=== PATIENT | female | born 1975 | race Caucasian/White ===

== ENCOUNTER 2019-01-07 06:34 | Day surgery (SDC) | payer MEDICAID, OTHER ==
[2019-01-07] MEDS ORDERED: DEXAMETHASONE SODIUM PHOSPHATE 10 MG/ML VIAL ONE (08:48)
[2019-01-07] MEDS ORDERED: fentaNYL CITRATE/PF 100 MCG/2 ML INJ. ONE ×2 (08:48→09:25)
[2019-01-07] MEDS ORDERED: GLYCOPYRROLATE 0.2 MG/1 ML 1 ML ONE (08:48)
[2019-01-07] MEDS ORDERED: LIDOCAINE HCL 1% PF 300MG/30ML VIAL ONE (08:48)
[2019-01-07] MEDS ORDERED: ePHEDrine SULFATE 50 MG/1 ML IVP ONE (08:48)
[2019-01-07] MEDS ORDERED: LIDOCAINE HCL 2% PF 100MG/5ML VIAL IJ ONE (08:48)
[2019-01-07] MEDS ORDERED: SODIUM CHLORIDE IRRIG SOLUTION 3,000 ML IRRIG.SOLN IR ONE (08:48)
[2019-01-07] MEDS ORDERED: FENTANYL CITRATE/PF 250 MCG/5 ML INJ. ONE (08:48)
[2019-01-07] MEDS ORDERED: LACTATED RINGERS 1,000 ML IV.SOLN IV ONE (08:48)
[2019-01-07] MEDS ORDERED: PROPOFOL 200 MG/20 ML VIAL IV ONE (08:48)
[2019-01-07] MEDS ORDERED: MIDAZOLAM HCL 2 MG/2 ML VIAL ONE (08:48)
[2019-01-07] MEDS ORDERED: SUGAMMADEX SODIUM 200 MG/2 ML VIAL IV ONE (08:48)
[2019-01-07] MEDS ORDERED: BUPIV. HCL 0.25% (2.5MG/ML)/EPI. (1:200,000) PF 30 ML VIAL IJ ONE (08:48)
[2019-01-07] MEDS ORDERED: ONDANSETRON HCL/PF 4 MG/ 2ML VIAL ONE (08:48)
[2019-01-07] MEDS ORDERED: ROCURONIUM BROMIDE 10 MG/ML 5ML VIAL ONE (08:48)
[2019-01-07] MEDS ORDERED: SEVOFLURANE 250 ML LIQUID IH ONE (08:48)
[2019-01-07] MEDS ORDERED: CLINDAMYCIN PHOSPHATE 900 MG/6 ML VIAL ONE (08:48)
[2019-01-07] MEDS ORDERED: ACETAMINOPHEN 1,000 MG/100 ML INJ IV ONE (08:48)
[2019-01-07] MEDS ORDERED: ENOXAPARIN SODIUM 40 MG/0.4 ML DISP.SYRIN SQ ONE (08:48)
--- NOTE | 2019-01-08 12:03 | Operative Note ---
PREOPERATIVE DIAGNOSIS: 1. Morbid obesity. 2. Gastroesophageal reflux disease. 3. Obstructive sleep apnea. POSTOPERATIVE DIAGNOSIS: 1. Morbid obesity. 2. Gastroesophageal reflux disease. 3. Obstructive sleep apnea. PROCEDURES PERFORMED: 1. Laparoscopic vertical sleeve gastrectomy. 2. Upper gastrointestinal endoscopy. SURGEON: Silas Aronld M.D. INDICATIONS FOR PROCEDURE: Ms. Coello is a 43-year-old female who presented with features of morbid obesity and the above-listed comorbidities. She was noted to have a weight of 276 pounds with a BMI of 46.6. The patient was advised laparoscopic vertical sleeve gastrectomy and possible hiatal hernia repair. The patient showed understanding and agreed to proceed. DESCRIPTION OF PROCEDURE: After explaining to the patient in detail and informed consent was obtained, the patient was identified in the preoperative holding area. The patient was transferred to the operating room and was placed in supine position. Sequential compressive devices were placed for DVT prophylaxis. Preoperative antibiotics were given. After induction of anesthesia, the abdomen was prepped and draped in a sterile fashion. Through a left upper quadrant 1-cm incision, and using Optiview technique, the peritoneal cavity was entered and pneumoperitoneum was created. Thereafter, under direct vision, another 5-mm trocar was placed in the left midabdomen and another 15-mm trocar was placed in the right midabdomen. Through a 1-cm incision in the right subcostal region, another 5-mm trocar was placed. Through a 1-cm incision in the epigastrium, a Nessa retractor was introduced and the left lobe of the liver was retracted. On initial inspection, the patient was noted to have no evidence of hiatal hernia. I took down the gastroepiploic vessels using a LigaSure. This was continued superiorly. The short gastric vessels were taken down. The gastrophrenic ligament was divided and the Angle of His was mobilized. The posterior attachments of the stomach on the pancreas were released. Distally, the gastroepiploic vessels were taken down up to about 4 cm proximal to the pylorus. At this point, a #38 [place] Bougie was introduced into the stomach and was placed along the lesser curve. The stomach was then divided in a vertical fashion with multiple Endo MOLINA Covidien Black Load Staplers. The first firing was directed outwards towards the greater curvature. Subsequent firings were directed towards the Angle of His to create a loose sleeve around the #38 [place] bougie. The bougie was then removed and an upper GI endoscopy was performed at this point. The scope was introduced into the esophagus and was gradually advanced into the stomach. The GE junction appeared normal. The sleeve size appeared normal. No evidence of any active bleeding was noted. The stomach was insufflated with air and irrigation of fluid along the staple line revealed no evidence of air leak. The stomach was then suctioned out and the scope was removed. Absolute hemostasis was ensured. Thorough saline irrigation was given. The Nessa retractor was removed. Approximately 10 mL of a lidocaine- Marcaine mix was instilled under the left hemidiaphragm. The sleeve gastrectomy specimen was removed. The abdomen was then deflated. The incisions were closed with 4-0 Monocryl. Dermabond was applied. Approximately 10 mL of a lidocaine- Marcaine mix was injected into all the incisions. The patient was awakened from anesthesia and was transferred to the recovery room in stable condition. ESTIMATED BLOOD LOSS: Approximately 10 mL. CONDITION OF THE PATIENT: Stable. FLUIDS GIVEN: Per Anesthesia note. SPECIMEN(S) SENT: Sleeve gastrectomy specimen. COMPLICATIONS: None. ANESTHESIA: General. Silas Arnold M.D. RANGEL/ramona Job #[id number] @ 0857 @1104 MTDD
== END 2019-01-07 10:59 | disposition other institution (70) ==
LOC: OPSURG 06:34
PROVIDERS: ATTEND Surgery
DX: E66.01 Morbid (severe) obesity due to excess calories (principal); Z68.42 Body mass index [BMI] 45.0-49.9, adult; K21.9 Gastro-esophageal reflux disease without esophagitis; G47.33 Obstructive sleep apnea (adult) (pediatric)
CPT/HCPCS: 43235; 43775; 88305; J1650; J2001; J2250; J2405; J2704; J3010; J3490; J7120

== ENCOUNTER 2019-01-07 11:01 | Inpatient (IN) | payer MEDICAID ==
[2019-01-07] MEDS: 0.9 % SODIUM CHLORIDE 1,000 ML IV SCH ×2 (11:05→17:30)
[2019-01-07] MEDS ORDERED: ONDANSETRON HCL/PF 4 MG/ 2ML VIAL IVP PRN (11:09)
[2019-01-07] MEDS ORDERED: HYDROCODON-ACETAMIN 7.5-325/15ML SOLN UD CUP PO PRN (11:09)
[2019-01-07] MEDS ORDERED: PROMETHAZINE HCL 25 MG in 0.9 % SODIUM CHLORIDE 50 ML IV PRN (11:09)
[2019-01-07] MEDS ORDERED: HYDROmorphone HCL 2 MG TABLET PO PRN (11:09)
[2019-01-07] MEDS ORDERED: CLINDAMYCIN PHOSPHATE/D5W 600 MG in PREMIX BAG 1 BAG IV SCH (11:15)
[2019-01-07] MEDS ORDERED: KETOROLAC TROMETHAMINE 30 MG/1ML VIAL ONE (11:20)
--- NOTE | 2019-01-07 11:31 | History and Physical Report ---
History of Present Illnes - History of Present Illness Reason for Visit: s/p gastric sleeve History of Present Illness: 43yo female - Past Medical History Cardiac: HTN Pulmonary: Asthma, Sleep Apnea (obstructive) Gastrointestinal: GERD Psych: Anxiety Rheumatologic: Fibromyalgia [facility]: [facility] - Past Surgical History Past Surgical History: , Hysterectomy, Tubal Ligation, Other (nasal surgery, dental extraction) - Past Family History Mother Family History: Other (asthma) Father Family History: (30yo, unknown cause) - Past Social History Smoke: # pack years (28), Quit ( 6month ago, ) Alcohol: Rare Drugs: None Lives: With Family Domestic Violence: Negative - Health Maintenance Health Maintenance: denies: Influenza Vaccine, Pneumococcal Vaccine Influenza Vaccine: No Pneumonia Vaccine: No Resuscitation Status: Resusciation Status Resuscitation Status Full Code - Unable to Obtain History Unable to Obtain: Yes Review of Systems - Review of Systems Constitutional: negative: Fever, Chills Eyes: negative: pain ENT: negative: Ear Pain, Ear Discharge, Nose Pain, Nose Discharge, Nose Congestion, Mouth Pain Respiratory: negative: Cough, Dry, Shortness of Breath, Hemoptysis, SOB with Excertion Cardiovascular: negative: Chest Pain, Palpitations Gastrointestinal: negative: Nausea, Vomiting, Abdominal Pain, Diarrhea, Constipation, Melena Genitourinary: negative: Dysuria, Frequency, Incontinence, Hematuria Musculoskeletal: negative: Back Pain Skin: negative: Rash Neurological: negative: Weakness, Incoordination, Change in Speech - Medications/Allergies Allergies/Adverse Reactions: Allergies Allergy/AdvReac Type Severity Reaction Status Date / Time Penicillins Allergy Unknown Verified 01/07/19 14:00 Exam - Exam General: Alert, Oriented to Person, Oriented to Place, Oriented to Time, Cooperative, Moderate distress HEENT: Atraumatic, PERRLA, EOMI, Mouth Mucous membr. moist/[place], Nose Mucous membr. moist/[place], Abnormal Pupil, Dentition Normal, Hearing Grossly Normal Neck: Normal Range of Motion Lungs: Clear to auscultation, Normal air movement, Speaks full Sentences Cardiovascular: Regular rate, Normal S1, Normal S2, No murmurs Abdomen: Soft, No hepatospenomegaly, No masses, Other (generlaized tenderness, incision sites clean and dry), Decreased Bowel Sounds Integumentary: Normal, [place], Warm, Dry Extremities: No clubbing, No cyanosis, No edema, Normal pulses, No tenderness/swelling Neurological: Normal gait, Normal speech, Strength Equal Bilat, Normal tone, Sensation intact, Cranial nerves 3-12 NL, Reflexes 2+ Psych/Mental Status: Mental status NL, Mood NL, Appropriate Affect, Intact Judgment Assessment/Plan - Assessment/Plan (1) S/P gastric surgery Status: Acute (2) Obstructive sleep apnea Status: Acute (3) Essential hypertension Status: Acute (4) Fibromyalgia Status: Acute (5) Asthma Status: Acute (6) GERD without esophagitis Status: Acute (7) Generalized anxiety disorder Status: Acute VTE Assessment - RISK FACTOR SCORE VTE RISK FACTOR SCORES: AGE 40-60 YEARS, MAJOR SURGERY/ANESTHESIA TIME > 1 HOUR
[2019-01-07 11:36] VITALS: BMI 64.8
[2019-01-07] MEDS: KETOROLAC TROMETHAMINE 30 MG/1ML VIAL IV PRN ×2 (11:56→18:16)
[2019-01-07] MEDS ORDERED: CLINDAMYCIN PHOSPHATE/D5W 50 ML IV ONE (16:56)
[2019-01-07] MEDS: CLINDAMYCIN PHOSPHATE/D5W 600 MG in PREMIX BAG 1 BAG IV SCH (17:30)
[2019-01-07] MEDS: FAMOTIDINE 20 MG/2 ML VIAL IVP SCH (21:20)
[2019-01-07] MEDS ORDERED: CLINDAMYCIN PHOSPHATE/D5W 600 MG/50 ML PIGGYBACK IV ONE (23:54)
[2019-01-08] MEDS: CLINDAMYCIN PHOSPHATE/D5W 600 MG in PREMIX BAG 1 BAG IV SCH (01:39)
[2019-01-08] MEDS: 0.9 % SODIUM CHLORIDE 1,000 ML IV SCH ×4 (01:40→21:04)
--- NOTE | 2019-01-08 06:48 | Inpatient Progress Note ---
Subjective - Required Recertification Statement I anticipate X number of days because-include discharge plan: 1 - Review of Systems Events since last encounter: Patient states that she had a decent night- she is using her CPAP- she had some nausea yesterday- she states nausea is mild this morning- abdominal pain is improving- she states that she has been belching and passing gas. She is excited that she will get to advance her diet today- she has family at the bedside- educated patient on continuing to ambulate today, continue to use incentive spirometer frequently and use SCDs while in bed. General: Denies: Chills, Night Sweats HEENT: Denies: Head Aches, Visual Changes Pulmonary: Denies: Dyspnea Cardiovascular: Denies: Chest Pain, Light Headedness Gastrointestinal: Nausea, Abdominal Pain (minimal discomfort). Denies: Vomiting Genitourinary: Denies: Dysuria Musculoskeletal: Denies: Back Pain Neurological: Denies: Weakness, Confusion Objective - Exam Vitals and I&O: Vital Signs Temp 96.5 F L 01/08/19 05:59 Pulse 60 01/08/19 06:00 Resp 18 01/08/19 06:00 BP 135/59 01/08/19 05:59 Pulse Ox 94 01/08/19 06:00 Intake & Output 01/07/19 01/07/19 01/08/19 11:59 23:59 11:59 Intake Total 150 60 Output Total 0 2700 Balance 150 60 -2700 Weight 122 kg Intake: IV 150 Right Hand 150 Oral 60 Output: Urine 0 2700 Other: Voiding Method Toilet Toilet # Voids 3 # Bowel Movements 0 General: Alert, Oriented to Person, Oriented to Place, Oriented to Time, Cooperative, No acute distress, Morbidly Obese HEENT: PERRLA, Mouth Mucous membr. moist/[place], Nose Mucous membr. moist/[place] Neck: Supple, +2 carotid pulse wo bruit Lungs: Clear to auscultation, Normal air movement, Speaks full Sentences Cardiovascular: Regular rate, Normal S1, Normal S2 Abdomen: Normal bowel sounds, Soft, No tenderness Extremities: Normal pulses Skin: Normal, [place], Warm, Dry Neurological: Normal gait, Normal speech, Strength Equal Bilat, Sensation intact Psych/Mental Status: Mental status NL, Mood NL, Appropriate Affect Assessment/Plan - Assessment/Plan (1) Essential hypertension Status: Acute Current Visit: Yes Assessment: Blood pressures are stable Plan: Will continue to hold BP medication and monitor every 4 hrs and prn (2) Fibromyalgia Status: Acute Current Visit: Yes Assessment: Stable Plan: Will continue to get patient up and ambulating (3) GERD without esophagitis Status: Acute Current Visit: Yes Assessment: Patient is doing well- minimal nausea Plan: Will continue with Pepcid IV BID (4) Generalized anxiety disorder Status: Acute Current Visit: Yes Assessment: Stable- has family at the bedside (5) Obstructive sleep apnea Status: Acute Current Visit: Yes Assessment: Patient is on CPAP and does very well Plan: Continue with CPAP (6) S/P gastric surgery Status: Acute Current Visit: Yes Assessment: Incision without redness or drainage, positive bowel sounds, minimal discomfort, belching and flatus, no extremity pain or edema Plan: Will continue with IVF, IV Pepcid, frequent ambulation, frequent incentive spirometer use, SCDs while in bed, advance diet per bariatric stage 1
[2019-01-08] MEDS: KETOROLAC TROMETHAMINE 30 MG/1ML VIAL IV PRN (08:06)
[2019-01-08] MEDS: FAMOTIDINE 20 MG/2 ML VIAL IVP SCH ×2 (09:40→21:05)
[2019-01-08] MEDS: ENOXAPARIN SODIUM 40 MG/0.4 ML DISP.SYRIN SQ SCH (09:40)
[2019-01-09] MEDS: 0.9 % SODIUM CHLORIDE 1,000 ML IV SCH (03:31)
--- NOTE | 2019-01-09 06:40 | Discharge Summary ---
Discharge Summary - Discharge Sumary History of Present Illness: Patient is a 43-year-old white female who has struggled with her weight for many years. Patient has tried various dietary regimens, medications, and exercising programs but has not been successful in maintaining weight loss. Patient and surgeon decided to continue with gastric sleeve procedure. Condition at Discharge: Stable Home Medications: Ambulatory Orders Medication Instructions Recorded Albuterol Sulfate [Proair 90 mcg IH Q6 PRN 01/07/19 Respiclick] Aspirin 81 mg PO DAILY 01/07/19 Buspirone HCl [Buspar] 15 mg PO TID 01/07/19 Carvedilol [Coreg] 12.5 mg PO BID 01/07/19 Duloxetine HCl 30 mg PO BID 01/07/19 Hemp Oil 500 mg PO DAILY 01/07/19 Ipratropium [place] [Atrovent INH 0.5 mg NEB Q6H 01/07/19 Soln] L.acidoph,Paracasei, B.lactis 1 each PO DAILY 01/07/19 [Probiotic] Lisinopril 12.5 mg PO DAILY 01/07/19 Naproxen 500 mg PO BID 01/07/19 [place]-3S/Dha/Epa/Fish Oil [Fish 1 each PO DAILY 01/07/19 Oil 1,200 mg Softgel] Ranitidine HCl 150 mg PO DAILY 01/07/19 Vitamin E 400 unit PO DAILY 01/07/19 amLODIPine BESYLATE [Norvasc] 10 mg PO 0900 01/07/19 Consultations this Visit: None Procedures this Visit: Other (S/P gastric sleeve procedure) Allergies/Adverse Reactions: Allergies Allergy/AdvReac Type Severity Reaction Status Date / Time Penicillins Allergy Unknown Verified 01/07/19 14:00 Patient Problems: Current Active Problems Problem Status Onset Asthma Acute Essential hypertension Acute Fibromyalgia Acute GERD without esophagitis Acute Generalized anxiety disorder Acute Obstructive sleep apnea Acute S/P gastric surgery Acute Discharge Summary: Patient is a 43-year-old female that underwent the gastric sleeve procedure and has done well. She has been very cooperative with her care by ambulating frequently, using her incentive spirometer, and wearing her SCDs while in bed. She has been compliant with her diet during hospitalization. She is having minimal discomfort at this time and mild nausea without vomiting, she has been passing gas and belching. She is aware of discharge instructions and what she can and cannot do post surgical- she is aware of the strict diet she must follow to decrease discomfort and have success after procedure. She has support and family will be taking her home- medications written by surgeon will be given to patient. Explained that we would advance her diet this morning to clear liquids and if she does well we may send her home. Hospital Course: Patient received pain medications, antiemetics, and IVF and was transitioned to oral. She has been up ambulating and using incentive spirometer. - Final Diagnosis (1) Essential hypertension Problems: Blood pressures are stable- will hold meds- pt will keep a log and take to f/u appt. Right or Left: Right (2) Fibromyalgia Problems: STable on home meds Right or Left: Right (3) GERD without esophagitis Problems: Stable on home meds Right or Left: Right (4) Generalized anxiety disorder Problems: Stable Right or Left: Right (5) Obstructive sleep apnea Problems: Continue to wear CPAP Right or Left: Right (6) S/P gastric surgery Problems: Incision without redness, positive bowel sounds, minimal discomfort, belching and flatus, no extremity pain or edema Right or Left: Right
[2019-01-09] MEDS: ENOXAPARIN SODIUM 40 MG/0.4 ML DISP.SYRIN SQ SCH (08:45)
[2019-01-09 08:51] VITALS: BP 130/59
[2019-01-09] MEDS: FAMOTIDINE 20 MG/2 ML VIAL IVP SCH (09:28)
[2019-01-09] MEDS: KETOROLAC TROMETHAMINE 30 MG/1ML VIAL IV PRN (09:38)
== END 2019-01-09 10:25 | disposition home or self-care (01) | DRG 948 ==
LOC: SOUTH 11:01
PROVIDERS: ADMIT Family Medicine; ATTEND Family Medicine
DX: G89.18 Other acute postprocedural pain (principal); R11.0 Nausea; E66.01 Morbid (severe) obesity due to excess calories; I10 Essential (primary) hypertension; M79.7 Fibromyalgia; F42.9 Obsessive-compulsive disorder, unspecified; J45.909 Unspecified asthma, uncomplicated
CPT/HCPCS: 97116; 97161; 97165; 97530; 97535; J1650; J1885; J2405; J7030; 99221; 99231; 99238